=== PATIENT | male | born 1985 | race Caucasian/White ===

== ENCOUNTER 2019-01-03 21:03 | Emergency (ER) | payer OTHER ==
[2019-01-03 21:15] VITALS: RESP 18
[2019-01-03] MEDS ORDERED: ONDANSETRON 4 MG/2 ML VIAL IVP STA (21:30)
[2019-01-03] MEDS ORDERED: SODIUM CHLORIDE 0.9% 2,000 ML IV ONE (21:30)
--- NOTE | 2019-01-03 21:53 | ED ---
General Adult HPI - General Chief complaint: Nausea/Vomiting/Diarrhea Stated complaint: Vomiting Time Seen by Provider: 01/03/19 21:17 Source: patient Mode of arrival: ambulatory Limitations: no limitations - History of Present Illness Initial comments: Patient is a 33-year-old male who presents with a chief complaint of nausea and vomiting for 2 days. The patient states that he has several family members who had similar symptoms. Patient cannot identify an inciting incident. There are no aggravating or alleviating factors. The patient states he feels dehydrated. He says that he has not vomited today however he still feels nauseated and feels a drawing up anytime he smells anything. He has no other medical conditions. - Related Data Home Medications Medication Instructions Recorded Confirmed Omeprazole [PriLOSEC] 20 mg PO DAILY 03/27/16 01/03/19 Simvastatin 40 mg PO HS 03/27/16 01/03/19 Lisinopril 40 mg PO DAILY 01/03/19 01/03/19 buPROPion HCL [Wellbutrin SR] 150 mg PO BID 01/03/19 01/03/19 lamoTRIgine [LaMICtal] 100 mg PO HS 01/03/19 01/03/19 Previous Rx's Medication Instructions Recorded Ondansetron Odt [Zofran Odt] 4 mg PO Q8HR PRN #12 tab 01/03/19 Allergies Allergy/AdvReac Type Severity Reaction Status Date / Time Penicillins Allergy Unknown Verified 01/03/19 21:18 Childhood Review of Systems ROS Statement: Those systems with pertinent positive or pertinent negative responses have been documented in the HPI. ROS Other: All systems not noted in ROS Statement are negative. Gastrointestinal: Reports: nausea, vomiting Past Medical History Past Medical History: Hypertension History of Any Multi-Drug Resistant Organisms: None Reported Past Surgical History: Cholecystectomy, Ear Surgery, Tonsillectomy Past Psychological History: Anxiety, Depression Smoking Status: Current some day smoker Past Alcohol Use History: None Reported Past Drug Use History: None Reported General Exam Limitations: no limitations General appearance: alert, in no apparent distress Head exam: Present: atraumatic, normocephalic Eye exam: Present: normal appearance ENT exam: Present: normal exam, mucous membranes moist Neck exam: Present: normal inspection Respiratory exam: Present: normal lung sounds bilaterally. Absent: respiratory distress, wheezes Cardiovascular Exam: Present: regular rate, normal rhythm GI/Abdominal exam: Present: soft. Absent: distended, tenderness Rectal exam: Present: deferred Extremities exam: Present: normal inspection Back exam: Present: normal inspection Neurological exam: Present: alert, oriented X3 Psychiatric exam: Present: normal affect, normal mood Skin exam: Present: warm, dry, intact Course Vital Signs 01/03/19 01/03/19 01/03/19 21:13 21:48 22:49 Temperature 98.2 F 98.0 F Pulse Rate 80 66 74 Respiratory 18 18 18 Rate Blood Pressure 164/112 132/86 141/80 O2 Sat by Pulse 97 95 96 Oximetry Medical Decision Making - Medical Decision Making Patient presents with a chief complaint of nausea and vomiting. On initial evaluation, vital signs show hypertension but otherwise stable. Patient is in no acute distress. Patient will be evaluated the labs including liver profile and lipase. He was given Zofran, and IV fluids. 10:52 PM Laboratory evaluation of this patient is unremarkable. In reevaluation he states that he feels better. Patient prescribed Zofran. He is stable for discharge, he was instructed to follow up with primary care 1 days, return to the ED if symptoms worsen or change. - Lab Data Result diagrams: 01/03/19 21:40 01/03/19 21:40 Lab Results 01/03/19 01/03/19 Range/Units 21:40 21:40 WBC 10.4 (3.8-10.6) k/uL RBC 5.26 (4.30-5.90) m/uL Hgb 14.4 (13.0-17.5) gm/dL Hct 43.2 (39.0-53.0) % MCV 82.1 (80.0-100.0) fL MCH 27.4 (25.0-35.0) pg MCHC 33.3 (31.0-37.0) g/dL RDW 14.0 (11.5-15.5) % Plt Count 283 (150-450) k/uL Neutrophils % 59 % Lymphocytes % 30 % Monocytes % 5 % Eosinophils % 4 % Basophils % 1 % Neutrophils # 6.1 (1.3-7.7) k/uL Lymphocytes # 3.2 (1.0-4.8) k/uL Monocytes # 0.5 (0-1.0) k/uL Eosinophils # 0.4 (0-0.7) k/uL Basophils # 0.1 (0-0.2) k/uL Sodium 140 (137-145) mmol/L Potassium 4.0 (3.5-5.1) mmol/L Chloride 107 (98-107) mmol/L Carbon Dioxide 22 (22-30) mmol/L Anion Gap 11 mmol/L BUN 13 (9-20) mg/dL Creatinine 1.00 (0.66-1.25) mg/dL Est GFR (CKD-EPI)AfAm >90 (>60 ml/min/1.73 sqM) Est GFR (CKD-EPI)NonAf >90 (>60 ml/min/1.73 sqM) Glucose 106 H (74-99) mg/dL Calcium 10.0 (8.4-10.2) mg/dL Total Bilirubin 0.7 (0.2-1.3) mg/dL AST 38 (17-59) U/L ALT 49 (21-72) U/L Alkaline Phosphatase 79 (38-126) U/L Total Protein 7.3 (6.3-8.2) g/dL Albumin 4.5 (3.5-5.0) g/dL Lipase 43 (23-300) U/L Disposition Clinical Impression: Dehydration, Nausea and vomiting Disposition: HOME SELF-CARE Condition: Good Instructions (If sedation given, give patient instructions): Acute Nausea and Vomiting (ED) Prescriptions: Ondansetron Odt [Zofran Odt] 4 mg PO Q8HR PRN #12 tab PRN Reason: Nausea Is patient prescribed a controlled substance at d/c from ED?: No Referrals: None,Stated [Primary Care Provider] - 1-2 days Olga Queen MD [STAFF PHYSICIAN] - 1-2 days
[2019-01-03 21:58] LABS: Basophils # (A) 0.1 k/uL (0-0.2); Basophils % (A) 1 %; Eosinophils # (A) 0.4 k/uL (0-0.7); Eosinophils % (A) 4 %; HCT 43.2 % (39.0-53.0); HGB 14.4 gm/dL (13.0-17.5); Lymphocytes # (A) 3.2 k/uL (1.0-4.8); Lymphocytes % (A) 30 %; MCH 27.4 pg (25.0-35.0); MCHC 33.3 g/dL (31.0-37.0); MCV 82.1 fL (80.0-100.0); Mean Platelet Volume 7.1; Monocytes # (A) 0.5 k/uL (0-1.0); Monocytes % (A) 5 %; Neutrophils # (A) 6.1 k/uL (1.3-7.7); Neutrophils % (A) 59 %; Platelet Count 283 k/uL (150-450); RBC 5.26 m/uL (4.30-5.90); WBC 10.4 k/uL (3.8-10.6)
[2019-01-03 22:13] LABS: Albumin 4.5 g/dL (3.5-5.0); Anion Gap 11 mmol/L; Blood Urea Nitrogen 13 mg/dL (9-20); Carbon Dioxide 22 mmol/L (22-30); Chloride 107 mmol/L (98-107); Glucose 106 mg/dL (74-99); Lipase 43 U/L (23-300); Sodium 140 mmol/L (137-145); Total Bilirubin 0.7 mg/dL (0.2-1.3); Total Protein 7.3 g/dL (6.3-8.2)
[2019-01-03 22:19] LABS: ALT 49 U/L (21-72); AST 38 U/L (17-59); Alkaline Phosphatase 79 U/L (38-126)
[2019-01-03 22:51] VITALS: PULSE 74
[2019-01-03 23:10] VITALS: BP 131/87; TEMP 97.8
== END 2019-01-03 23:10 | disposition home or self-care (01) ==
LOC: EC 21:03
DX: E86.0 Dehydration (principal); R11.2 Nausea with vomiting, unspecified; I10 Essential (primary) hypertension; F32.9 Major depressive disorder, single episode, unspecified; F41.9 Anxiety disorder, unspecified; F17.200 Nicotine dependence, unspecified, uncomplicated; Z79.899 Other long term (current) drug therapy; Z88.0 Allergy status to penicillin; Z90.49 Acquired absence of other specified parts of digestive tract
CPT/HCPCS: 36415; 80053; 83690; 85025; 99284; 96374; 96361; J2405

== ENCOUNTER → 2019-03-09 | Outpatient (CLI) | payer OTHER ==
--- NOTE | 2019-03-09 11:24 | XR ---
EXAM TYPE: LUMBAR SPINE X RAY SERIES COMPARISON: NONE HISTORY: Low back pain TECHNIQUE: 4 views are submitted. FINDINGS: Alignment is anatomic. The pedicles are intact. The transverse processes are intact. There is no s pondylolysis or spondylolisthesis. Spina bifida occulta lumbosacral junction. Suspicion for bilatera l spondylolysis L5. IMPRESSION: 1. Splenic spina bifida occulta lumbosacral junction. Only 3 views were submitted without oblique vie ws to assess the posterior elements. There is suspicion for a spondylolysis at L5 with minimal diogenes listhesis.
== END | disposition home or self-care (01) ==
LOC: RADXRMAIN 10:53
PROVIDERS: ATTEND Family Medicine
DX: Q76.0 Spina bifida occulta (principal)
CPT/HCPCS: 72100

== ENCOUNTER 2019-06-20 09:47 | Emergency (ER) | payer OTHER ==
[2019-06-20 09:54] VITALS: BP 157/95; PULSE 95; RESP 18; TEMP 97.5
--- NOTE | 2019-06-20 10:04 | ED ---
Lower Extremity Injury HPI - General Chief Complaint: Extremity Injury, Lower Stated Complaint: foot injury-[facility] Time Seen by Provider: 06/20/19 09:57 Source: patient Mode of arrival: ambulatory Limitations: no limitations - History of Present Illness Initial Comments: Patient is a 33-year-old male presenting to the emergency Department with complaints of left ankle pain and swelling 4 days. Patient states he was at work 4 days ago pushing a cart, when he went to go around a corner and his left ankle gave out, twisting it. Patient states he called his work's medical line who said to ice, elevate and put heat on his left ankle. Patient states he has been doing at last 4 days but today the swelling and pain is significantly worse. Patient states he is having a hard time walking on it. Patient denies any previous injuries or surgeries to the left ankle. Patient has no other complaints at this time. Upon arrival to the ER, vital signs are stable. - Related Data Home Medications Medication Instructions Recorded Confirmed Omeprazole [PriLOSEC] 20 mg PO DAILY 03/27/16 01/03/19 Simvastatin 40 mg PO HS 03/27/16 01/03/19 Lisinopril 40 mg PO DAILY 01/03/19 01/03/19 buPROPion HCL [Wellbutrin SR] 150 mg PO BID 01/03/19 01/03/19 lamoTRIgine [LaMICtal] 100 mg PO HS 01/03/19 01/03/19 Previous Rx's Medication Instructions Recorded Ondansetron Odt [Zofran Odt] 4 mg PO Q8HR PRN #12 tab 01/03/19 Allergies Allergy/AdvReac Type Severity Reaction Status Date / Time Penicillins Allergy Unknown Verified 06/20/19 09:54 Childhood Review of Systems ROS Statement: Those systems with pertinent positive or pertinent negative responses have been documented in the HPI. ROS Other: All systems not noted in ROS Statement are negative. Past Medical History Past Medical History: Hypertension History of Any Multi-Drug Resistant Organisms: None Reported Past Surgical History: Cholecystectomy, Ear Surgery, Tonsillectomy Past Psychological History: Anxiety, Depression Smoking Status: Current some day smoker Past Alcohol Use History: None Reported Past Drug Use History: None Reported General Exam - General Exam Comments Initial Comments: GENERAL: Well-appearing, well-nourished and in no acute distress. HEAD: Atraumatic, normocephalic. EYES: Pupils equal round and reactive to light, extraocular movements intact, sclera anicteric, conjunctiva are normal. ENT: Moist mucous membranes. NECK: Normal range of motion, supple without lymphadenopathy or JVD. LUNGS: Breath sounds clear to auscultation bilaterally and equal. No wheezes rales or rhonchi. HEART: Regular rate and rhythm without murmurs, rubs or gallops. ABDOMEN: Soft, nontender, normoactive bowel sounds. No guarding, no rebound. No masses appreciated. EXTREMITIES: Pain with palpation over the medial, anterior, lateral aspect of the left ankle. Patient has moderate swelling of the left ankle and into the foot. Patient has decreased left ankle range of motion secondary to pain. Patient is neurovascular intact. PSYCH: Normal mood, normal affect. SKIN: Warm, Dry, normal turgor, no rashes or lesions noted. Limitations: no limitations Course Vital Signs 06/20/19 09:52 Temperature 97.5 F L Pulse Rate 95 Respiratory 18 Rate Blood Pressure 157/95 O2 Sat by Pulse 98 Oximetry Medical Decision Making - Medical Decision Making Patient is a 33-year-old male presenting with left ankle injury 4 days. On exam patient has moderate swelling and pain to the left ankle and into the foot. X-rays reveal no acute fractures or dislocations in the foot or ankle. Patient will be discharged home with an ankle stirrup brace. Patient will continue with elevation, compression, ice. Patient has crutches with him. Patient was given a work note for 2 days and then will follow-up with PCP. Patient is in agreement with this plan of care. Patient is stable for discharge at this time. Return parameters were discussed with the patient and he verbalized understanding. Case discussed with Dr. Ambrose. Disposition Clinical Impression: Moderate left ankle sprain Disposition: HOME SELF-CARE Condition: Stable Instructions (If sedation given, give patient instructions): Ankle Sprain (ED) Additional Instructions: Please return to the Emergency Department if symptoms worsen or any other concerns. Continue with rest, ice, compression, elevation. Use compression wrap and crutches as needed at home. Use ankle brace when starting to bear weight. Follow-up with PCP for continued management. Is patient prescribed a controlled substance at d/c from ED?: No Referrals: Pato Ceballos DO [Primary Care Provider] - 1-2 days
--- NOTE | 2019-06-20 10:29 | XR ---
EXAMINATION TYPE: XR ankle complete LT , 3 VIEWS DATE OF EXAM ORDERED: 06/20/2019 HISTORY: fall, pain, swelling. COMPARISON: None. FINDINGS: No fracture, dislocation or ankle joint effusion is seen. IMPRESSION: NO ACUTE OSSEOUS LESION.
--- NOTE | 2019-06-20 10:30 | XR ---
EXAMINATION TYPE: XR foot complete LT , 3 VIEWS DATE OF EXAM ORDERED: 06/20/2019 HISTORY: fall, pain, swelling. COMPARISON: None. FINDINGS: Is a mild hallux valgus deformity. No fracture, dislocation or other acute osseous lesion is seen. IMPRESSION: NO ACUTE OSSEOUS LESION.
== END 2019-06-20 11:13 | disposition home or self-care (01) ==
LOC: EC 09:47
DX: S93.402A Sprain of unspecified ligament of left ankle, initial encounter (principal); I10 Essential (primary) hypertension; F41.9 Anxiety disorder, unspecified; F32.9 Major depressive disorder, single episode, unspecified; F17.200 Nicotine dependence, unspecified, uncomplicated; Z88.0 Allergy status to penicillin; Z79.899 Other long term (current) drug therapy; X50.1XXA Overexertion from prolonged static or awkward postures, initial encounter; Y93.89 Activity, other specified; Y92.69 Other specified industrial and construction area as the place of occurrence of the external cause; Y99.0 Civilian activity done for income or pay
CPT/HCPCS: 73610; 73630; 99283; 29515; L4350

== ENCOUNTER → 2019-08-25 | Outpatient (CLI) | payer OTHER ==
--- NOTE | 2019-08-26 01:43 | MR ---
EXAMINATION TYPE: MR foot LT wo con DATE OF EXAM: 08/25/2019 COMPARISON: None HISTORY: Pain in ankle/midfoot proximal to 5th digit Multiplanar multiecho imaging of the left foot was performed with no contrast. FINDINGS: There is soft tissue swelling and subcutaneous edema involving the forefoot on the dorsal aspect of t he metatarsals. The metatarsals are intact. There is no evidence of a fracture. The MP joints appear intact. The toes appear intact. I see no bony destructive process. The plantar fascia appears intact. There is no pathologic fluid collection. IMPRESSION: Diffuse edema of the subcutaneous tissues on the dorsum of the forefoot. No fracture seen. No sign of osteomyelitis.
--- NOTE | 2019-08-26 01:46 | MR ---
EXAMINATION TYPE: MR ankle LT wo con DATE OF EXAM: 08/25/2019 COMPARISON: None HISTORY: Pain in ankle/midfoot proximal to 5th digit Multiplanar multiecho imaging of the left ankle was performed with no contrast. There is ankle joint effusion. The Achilles tendon is intact. Plantar fascia appears intact. Ankle mo rtise is anatomic. There is no evidence of a fracture. I see no bony destructive process. The medial and lateral flexor tendons of the ankle appear intact. There is diffuse subcutaneous edema on the dorsum of the ankle. The collateral ligaments appear intac t. IMPRESSION: Subcutaneous edema. No fracture. No evidence of ligament or tendon tear. Moderate-sized ankle joint e ffusion consistent with nonspecific synovitis.
== END | disposition home or self-care (01) ==
LOC: RADMRIMAIN 18:50
PROVIDERS: ATTEND Nurse Practitioner Family
DX: M79.89 Other specified soft tissue disorders (principal); R60.0 Localized edema; M25.472 Effusion, left ankle

== ENCOUNTER → 2020-07-17 | Outpatient (CLI) | payer OTHER | END | disposition home or self-care (01) | LOC: LABWHC1 12:50 | PROVIDERS: ATTEND Family Medicine | DX: Z20.828 Contact with and (suspected) exposure to other viral communicable diseases (principal) | CPT/HCPCS: U0003; C9803 ==

== ENCOUNTER → 2020-11-13 | Outpatient (CLI) | payer OTHER | END | disposition home or self-care (01) | LOC: LABWHC1 17:02 | PROVIDERS: ATTEND Family Medicine | DX: Z20.822 Contact with and (suspected) exposure to COVID-19 (principal); R53.83 Other fatigue | CPT/HCPCS: 87502; U0003; C9803 ==